=== PATIENT | male | born 1935 | race Caucasian/White ===

== ENCOUNTER → 2020-03-03 | Outpatient (CLI) | payer MEDICARE, OTHER ==
[~2020-03-03] MED LIST: ASPIRIN81 MG PO; LEVOTHYROXINE50 MCG PO; LIPITOR10 MG PO; LISINOPRIL5 MG PO; NITROGLYCERIN0.4 MG SL
== END ==
LOC: DX 12:05
PROVIDERS: ATTEND Emergency Medicine
DX: Z01.818 Encounter for other preprocedural examination (principal); Z53.8 Procedure and treatment not carried out for other reasons; Z11.59 Encounter for screening for other viral diseases

== ENCOUNTER 2020-03-15 09:25 | Inpatient (IN) | payer MEDICARE, OTHER ==
[2020-03-03 15:03] LABS: BASOPHILS # (AUTO) 0.1 (0.0-0.1); BASOPHILS % 1.1 % (0.0-1.0); EOSINOPHILS # (AUTO) 0.1 (0.0-0.4); HEMOGLOBIN 12.2 g/dL (14.0-18.0); LYMPHOCYTES # (AUTO) 1.3 (1.0-3.2); LYMPHOCYTES % 20.3 % (18.0-39.1); MEAN CORPUSCULAR HEMOGLOBIN 26.1 pg (28-32); MEAN CORPUSCULAR HGB CONC 29.8 g/dL (31-35); MEAN CORPUSCULAR VOLUME 87.8 fL (81-99); MONOCYTES # (AUTO) 0.6 (0.2-0.8); MONOCYTES % 8.8 % (4.4-11.3); NEUTROPHILS # (AUTO) 4.5 (2.1-6.9); NEUTROPHILS % 67.6 % (38.7-80.0); PLATELET COUNT 342 x10e3/uL (140-360); RED BLOOD COUNT 4.67 x10e6/uL (4.3-5.7); RED CELL DISTRIBUTION WIDTH 14.2 % (11.7-14.4)
--- NOTE | 2020-03-03 15:08 | Diagnostic Imaging Report ---
X-ray chest PA and lateral History: Preop Comparison: None. Findings: Central airways unremarkable. Cardiomegaly. Atherosclerotic ectatic aorta. Elevation of the right hemidiaphragm with atelectasis of the right lower lung zone. The minor fissure is not displaced. This is unlikely to be a lobar collapse. There is possibility of a small right pleural effusion. No other focal lung disease. Visualized skeletal structures show degenerative changes, orthopedic hardware in the right shoulder and the left AC joint. Upper abdomen unremarkable. Impression: Elevation of the right hemidiaphragm. No other acute abnormality. Signed by: Dante Mcdonald MD on 03/03/2020 3:05 PM
[2020-03-03 15:16] LABS: INR 1.15; PROTHROMBIN TIME 15.4 seconds (11.9-14.5)
[2020-03-03 15:17] LABS: PARTIAL THROMBOPLASTIN TIME 33.8 seconds (23.8-35.5)
[2020-03-03 15:27] LABS: ANION GAP 13.2 mmol/L (8-16); BLOOD UREA NITROGEN 11 mg/dL (7-26); BUN/CREATININE RATIO 10 (6-25); CALCIUM 9.3 mg/dL (8.4-10.2); CARBON DIOXIDE 28 mmol/L (22-29); CHLORIDE 98 mmol/L (98-107); CREATININE, SERUM 1.07 mg/dL (0.72-1.25); EST GLOMERULAR FILTRATION RATE > 60 ML/MIN (60-); GLUCOSE 165 mg/dL (74-118); POTASSIUM 4.2 mmol/L (3.5-5.1); SODIUM 135 mmol/L (136-145)
[~2020-03-15] VITALS: Ht 175.3 cm; Wt 83.9 kg
[~2020-03-15 09:25] MED LIST changes: -ASPIRIN81 MG PO
[2020-03-15] MEDS ORDERED: CEFAZOLIN SOD 1 GM/NS 50ML 50 ML IV ONE ×2 (09:47→22:00)
[2020-03-15] MEDS ORDERED: LIDOCAINE HCL 1% 2 ML AMP ONE (12:31)
[2020-03-15] MEDS ORDERED: PROTAMINE SULFATE 10 MG/ML 5 ML VIAL ONE (12:31)
[2020-03-15] MEDS ORDERED: THROMBIN FOR SOLN 5,000 UNIT VIAL ONE (12:31)
[2020-03-15] MEDS ORDERED: HEPARIN SOD (PORCINE) 1000 UNIT/ML 30ML ONE (12:31)
[2020-03-15] MEDS ORDERED: SODIUM CHLORIDE 0.9% 500ML 500 ML ONE (12:32)
[2020-03-15] MEDS ORDERED: MUPIROCIN 2% OINT 22 GM TUBE ONE (12:32)
[2020-03-15] MEDS ORDERED: HEPARIN SOD/SOD CHLORIDE 1,000 ML ONE (13:02)
[2020-03-15] MEDS ORDERED: LIDOCAINE HCL (LTA) 4 ML SOLN ONE (14:43)
[2020-03-15] MEDS ORDERED: ALBUTEROL/IPRATROPIUM 3 ML NEB ONE (17:42)
[2020-03-15] MEDS ORDERED: SUGAMMADEX SODIUM 200 MG/2 ML VIAL IV ONE (17:47)
[2020-03-15] MEDS ORDERED: ONDANSETRON HCL INJ 2MG/ML 2ML 2 MG/ML VIAL ONE (18:06)
[2020-03-15 18:36] LABS: BASOPHILS # (AUTO) 0.1 (0.0-0.1); BASOPHILS % 0.6 % (0.0-1.0); EOSINOPHILS # (AUTO) 0.2 (0.0-0.4); EOSINOPHILS % 1.2 % (0.0-6.0); HEMATOCRIT 35.2 % (38.2-49.6); HEMOGLOBIN 10.5 g/dL (14.0-18.0); LYMPHOCYTES # (AUTO) 2.2 (1.0-3.2); LYMPHOCYTES % 17.3 % (18.0-39.1); MEAN CORPUSCULAR HEMOGLOBIN 26.2 pg (28-32); MEAN CORPUSCULAR HGB CONC 29.8 g/dL (31-35); MEAN CORPUSCULAR VOLUME 87.8 fL (81-99); MONOCYTES # (AUTO) 0.7 (0.2-0.8); MONOCYTES % 5.4 % (4.4-11.3); NEUTROPHILS # (AUTO) 9.6 (2.1-6.9); NEUTROPHILS % 74.9 % (38.7-80.0); PLATELET COUNT 305 x10e3/uL (140-360); RED BLOOD COUNT 4.01 x10e6/uL (4.3-5.7); RED CELL DISTRIBUTION WIDTH 13.9 % (11.7-14.4)
--- NOTE | 2020-03-15 18:50 | NUR ---
PT TO THE FLOOR FROM PACU IN STABLE CONDITION. VITALS WNL. PT RESTING AT THIS TIME.
[2020-03-15 18:58] LABS: ALANINE AMINOTRANSFERASE 11 IU/L (0-55); ALBUMIN 3.2 g/dL (3.5-5.0); ALBUMIN/GLOBULIN RATIO 0.9 (0.8-2.0); ALKALINE PHOSPHATASE 62 IU/L (40-150); BLOOD UREA NITROGEN 12 mg/dL (7-26); BUN/CREATININE RATIO 13 (6-25); CALCIUM 8.3 mg/dL (8.4-10.2); CARBON DIOXIDE 25 mmol/L (22-29); CHLORIDE 102 mmol/L (98-107); EST GLOMERULAR FILTRATION RATE > 60 ML/MIN (60-); GLUCOSE 167 mg/dL (74-118); SODIUM 137 mmol/L (136-145)
--- NOTE | 2020-03-15 19:15 | NUR ---
BEDSIDE REPORT GIVEN TO ZEE MORATAYA.
--- NOTE | 2020-03-15 19:51 | NUR ---
Received gilliam of shift report from Am nurse. Walking rounds completed.
[2020-03-15 20:00] VITALS: BP 127/58
--- NOTE | 2020-03-15 20:41 | NUR ---
Dr Karen Shah on the floor to see patient. MD aware of consult. Patient resting quitly in room with no c/o at this time. Continue monitor. Ice pack to neck as ordered.
[2020-03-15 21:00] VITALS: BP 127/58
[2020-03-15] MEDS: SODIUM CHLORIDE 0.9% 1000ML 1,000 ML IV SCH (21:00)
[2020-03-15] MEDS ORDERED: MORPHINE SULFATE 2 MG/ML SYR 1ML IV PRN (21:00)
--- NOTE | 2020-03-15 21:24 | Consultation ---
DATE OF CONSULTATION: Pulmonary Critical Care Consultation CHIEF COMPLAINT: Hypertension and recent carotid endarterectomy. HISTORY OF PRESENT ILLNESS: The patient is an 84-year-old man with a history of severe carotid stenosis as well as hypertension and peripheral vascular disease. He came for a carotid endarterectomy. Dacron graft was used as well as a shunt. There were no perioperative problems. PAST SURGICAL HISTORY: 1. Status post carotid endarterectomy as noted above. 2. History of prior cardiac cath. PAST MEDICAL HISTORY: 1. Hypertension. 2. Hyperlipidemia. 3. Peripheral vascular disease. SOCIAL HISTORY: The patient is not an active smoker. He is not an active drinker. REVIEW OF SYSTEMS: There is no complaint of headache. He has no fevers. He has no chest pain. He is not having difficulty breathing. There is no abdominal pain. He has no nausea or vomiting. PHYSICAL EXAMINATION: VITAL SIGNS: The patient is afebrile. The vital signs are stable. HEENT: Shows no facial swelling or erythema. CARDIAC: Reveals regular rate and rhythm with normal S1 and S2. LUNGS: Auscultation of lungs reveals clear breath sounds bilaterally. There is no wheezing. ABDOMEN: Soft and nontender. There is no rebound or guarding. EXTREMITIES: Shows no leg edema or calf tenderness. IMPRESSION: 1. Hypertension. 2. Peripheral vascular disease. 3. Right-sided diaphragmatic paralysis. 4. Hyperlipidemia. 5. Recent carotid endarterectomy. PLAN: 1. Continue to monitor postoperatively. 2. Control blood pressure. 3. Continue pain control. 4. Out of bed as tolerated. 5. Possible discharge home tomorrow if stable. Yon Shah MD LM/ARABELLAL /[id number]
[2020-03-15] MEDS ORDERED: HYDROCODONE/APAP 5MG-325MG TAB PO PRN (21:30)
[2020-03-15] MEDS ORDERED: CEFAZOLIN SOD 1 GM VIAL IV SCH (21:30)
[2020-03-15] MEDS ORDERED: LABETALOL HCL 5 MG/ML 20ML VIAL IV PRN (21:30)
[2020-03-15] MEDS ORDERED: MORPHINE SULFATE 2 MG/ML SYR 1ML IV ONE (22:00)
[2020-03-15] MEDS ORDERED: MORPHINE SULFATE INJ 10 MG/ML IV PRN (23:45)
[2020-03-16] VITALS: BP 123/65
--- NOTE | 2020-03-16 02:11 | NUR ---
Patient resting quitly in bed. Denies pain at this time. Will continue monitor.
[2020-03-16 04:02] VITALS: BP 98/72
--- NOTE | 2020-03-16 04:09 | NUR ---
Patient walked in ballard with use of walker. walked 100 feet then became weak. Returned to room in will chair. Linen changed. Patient in bed reting quitly at this time.
[2020-03-16] MEDS: SODIUM CHLORIDE 0.9% 1000ML 1,000 ML IV SCH (07:00)
--- NOTE | 2020-03-16 07:31 | NUR ---
report received on patient. assisted patient with urinal and back to bed. ice pack reapplied to neck. IV hep locked per instructions on OCT.
[2020-03-16 07:39] VITALS: BP 137/70
[2020-03-16 09:00] VITALS: BP 137/70
[2020-03-16] MEDS ORDERED: ENOXAPARIN SOD INJ 40 MG/0.4 ML SYR SC SCH (09:00)
--- NOTE | 2020-03-16 09:31 | NUR ---
GAUZE DRESSING FOUND HANGING OFF PATIENT'S NECK. NEW DRESSING APPLIED TO INCISION ON RIGHT NECK. SMALL AMOUNT OF DRAINAGE ON OLD BANDAGE.
[2020-03-16 11:59] VITALS: BP 135/66
[2020-03-16] MEDS ORDERED: ASPIRIN81 MG PO (12:02)
--- NOTE | 2020-03-16 12:17 | Consultation ---
DATE OF CONSULTATION: Cardiology consult HISTORY OF PRESENT ILLNESS: Phil Medina is an 84-year-old male with primary history of hypertension, hyperlipidemia, PVD, and severe carotid stenosis, admitted status post right carotid endarterectomy by Dr. Jamal Tucker on 03/15/2020. PAST MEDICAL HISTORY: Hypertension, hyperlipidemia, and peripheral vascular disease. PAST SURGICAL HISTORY: Prior cardiac cath and status post carotid endarterectomy as noted above. SOCIAL HISTORY: The patient was a former smoker. He is not an active alcohol drinker. PHYSICAL EXAMINATION: CURRENT VITAL SIGNS: 98.9 temperature, pulse of 97, blood pressure is 137/70, pulse oximetry 98% on 2 L nasal cannula. GENERAL: The patient is well developed, well nourished, no acute respiratory distress. SKIN: Normal in appearance, texture, and temperature. Warm and dry. Few discoloration to bilateral lower extremity. HEENT: The patient's cranium is normocephalic and atraumatic. Pupils are equally round, reactive to light and accommodation. Ears are normal. Mucosa is moist. Throat is clear. NECK: Supple. Full range of motion. No cervical lymphadenopathy. No thyromegaly. No JVD. Right carotid area/neck, no hematoma. Dressing is dry and intact. RESPIRATORY: Normal respiratory effort. LUNGS: Clear to auscultation bilaterally. No wheezing. No rhonchi or rales. CARDIOVASCULAR: S1 and S2 audible. Regular rate and rhythm and no significant murmurs heard on auscultation. GI: Soft, nontender and nondistended. Bowel sounds are present. EXTREMITIES: Trace swelling/edema to bilateral lower extremities. Pulses are palpable 1+ throughout. NEUROLOGIC: Motor and sensory examination of upper and lower extremities is normal. Reflexes are normal and symmetrical bilaterally. IMPRESSION AND PLAN: 1. The patient is an 84-year-old male admitted status post right carotid endarterectomy. 2. Monitor hemodynamics and place on continuous telemetry monitoring. 3. Monitor right neck/carotid site or incision and report any complications. 4. Restart lipid-lowering agents, statin and keep blood pressure less than 160 and give p.r.n. beta-tina for sinus tachycardia. Thank you for this consultation. We will continue to follow. Dictated by Laney Gleason, GINGER MD ANDRIY Coronel/LOUISA /[id number]
--- NOTE | 2020-03-18 21:35 | Operative Report ---
DATE OF PROCEDURE: 03/15/2020 SURGEON: Jamal Tucker MD TUBE WORKER: Chris. PREOPERATIVE DIAGNOSIS: Severe right carotid stenosis. POSTOPERATIVE DIAGNOSIS: Severe right carotid stenosis. TITLE OF OPERATION: Right carotid endarterectomy. DESCRIPTION OF OPERATION: After the satisfactory accomplishment of general anesthesia, the patient's right neck was prepped and draped in sterile fashion. A standard right carotid incision was made along the anterior border of the sternomastoid muscle. The incision was carried down through the subcutaneous tissues to expose the right common carotid artery. The vessel was dissected free from the surrounding tissues and looped with a vessel loop. The dissection was then carried distally to expose the external carotid artery and its branches and the internal carotid artery. Care was taken to identify and preserve all nerve structures in the region. Systemic heparin was given through a central vein cannula for the purposes of anticoagulation. The common external and internal carotid arteries were briefly crossclamped. A long incision was made in the common carotid artery and carried up into the internal carotid artery. A severely obstructing an extraordinarily calcified plaque was located from the bifurcation distally up into the internal carotid artery. The plaque was so severe that it was impossible to dissect it free from the wall of the artery easily. The inflammation and calcium caused the Griselda and unbreakable plaque to adhere to the adventitia of the wall. Because of this reason, the plaque was divided at the bifurcation and a virtual endarterectomy using eversion techniques was accomplished in the distal internal carotid artery. Once the bulk of the plaque was removed, an indwelling shunt was placed in the common carotid artery proximally and the internal carotid artery distally, thereby re-establishing blood flow to the right side of the brain for the remainder of the case. The rest of the endarterectomy was then completed. The endarterectomy in the distal portion of the internal carotid artery was done in a piecemeal fashion and once a smooth intima was reached, this intima was packed to the adventitia with multiple interrupted horizontal mattress sutures of 7-0 Prolene. Once this arterial wall layering was secured, the rest of the endarterectomy was completed proximally. The bulk of the plaque was removed and the remaining adventitia was frequently and generously flushed with heparinized saline solution. All loose debris was removed. Following this, a previously constructed pericardial patch was brought into the operative field and used to close the arteriotomy site. Running 7-0 Prolene was used for this patch closure. Prior to completing the closure, the shunt was removed and the vessel was flushed free from all air and debris. Once the sutures were tied, excellent pulses were located within the patch area and beyond. Protamine was given to counteract the effects of the heparin and all bleeding points were cauterized, ligated, or oversewn. The wound was then irrigated with antibiotic solution and closed in layers with interrupted 2-0 Vicryl for the deep tissues and Monocryl subcuticular stitches for the skin. The patient tolerated the procedure well and was awakened in the recovery room. He was returned to the recovery room in good condition and neurologically intact. MD CHELSEY Chou/LOUISA /[id number]
== END 2020-03-16 15:10 | disposition home or self-care (01) | DRG 39 ==
LOC: OR 09:25 → PACU V 15:14 → IMCU 18:51
PROVIDERS: ADMIT Thoracic Surgery (Cardiothoracic Vascular Surgery); ATTEND Thoracic Surgery (Cardiothoracic Vascular Surgery)
PROC: 03UK0JZ Supplement Right Internal Carotid Artery with Synthetic Substitute, Open Approach (ICD-10-PCS; 2020-03-15)
PROC: 03CK0ZZ Extirpation of Matter from Right Internal Carotid Artery, Open Approach (ICD-10-PCS; principal; 2020-03-15 14:00)
DX: I65.21 Occlusion and stenosis of right carotid artery (principal); Z11.59 Encounter for screening for other viral diseases
CPT/HCPCS: 36415; 71046; 80048; 80053; 85025; 85610; 85730; 86850; 86900; 86920; 88304; 88311; 93005; C1768; J0690; J1644; J1650; J2001; J2405; J2720; J7030; J7040; U0002